=== PATIENT | male | born 1985 | race American Indian/Alaskan Native ===

== ENCOUNTER 2018-05-23 15:59 | Emergency (ER) | payer SELFPAY ==
[2018-05-23 16:07] VITALS: BMI 24.0
[2018-05-23 16:13] VITALS: BP 133/69; PULSE 63; RESP 18; TEMP 99.5; O2SAT 100
[2018-05-23] MEDS ORDERED: Lidocaine 1% Inj (20ml) ONE (17:07)
[2018-05-23] MEDS ORDERED: Amoxicillin-Clav 250-62.5 mg/5 ml Susp (75 ml) PO STA (18:33)
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
== END 2018-05-23 19:15 | disposition home or self-care (01) ==
LOC: ED 15:59
DX: S01.511A Laceration without foreign body of lip, initial encounter (principal); Y04.0XXA Assault by unarmed brawl or fight, initial encounter; Y92.9 Unspecified place or not applicable